=== PATIENT | male | born 1960 | race Two or more races ===

== ENCOUNTER 2022-03-12 06:22 | Emergency (ER) | payer OTHER ==
[~2022-03-12] VITALS: Ht 167.6 cm; Wt 67.3 kg
[~2022-03-12 06:22] MED LIST: CYCL7.5T2; HYDR500T13; OMEP20TA44; TRAM1CAP; [UNRECOGNIZED DRUG - OTHER]
[2022-03-12] MEDS ORDERED: ETOMIDATE (2MG/ML) 20ML VIAL IV ONE (08:15)
[2022-03-12 09:11] VITALS: BP 132/82
== END 2022-03-12 08:57 | disposition home or self-care (01) ==
LOC: ER 06:22
DX: S43.004A Unspecified dislocation of right shoulder joint, initial encounter (principal); W19.XXXA Unspecified fall, initial encounter; Y93.89 Activity, other specified; Y92.89 Other specified places as the place of occurrence of the external cause; Y99.8 Other external cause status
CPT/HCPCS: 23650; 73030; 99152

== ENCOUNTER 2022-03-19 05:43 | Emergency (ER) | payer MEDICAID, OTHER ==
[~2022-03-19] VITALS: Ht 167.6 cm; Wt 67.7 kg
[2022-03-19] MEDS ORDERED: PROPOFOL 10 MG/ML 20 ML IV ONE (06:45)
[2022-03-19] MEDS ORDERED: KETAMINE 50mg/ML 10ml Vial (500mg/10ml) IV ONE (06:45)
[2022-03-19] MEDS ORDERED: HYDROmorphone HCL 2 MG/ML VL/or syr IV ONE (07:45)
[2022-03-19 09:00] VITALS: BP 139/74
== END 2022-03-19 10:27 | disposition home or self-care (01) ==
LOC: ER 05:43
DX: S43.004A Unspecified dislocation of right shoulder joint, initial encounter (principal); F17.210 Nicotine dependence, cigarettes, uncomplicated; X58.XXXA Exposure to other specified factors, initial encounter; Y93.89 Activity, other specified; Y92.89 Other specified places as the place of occurrence of the external cause; Y99.8 Other external cause status
CPT/HCPCS: 23650; 73020; 73030; 99152; 99285; J2704; 94760; 94762

== ENCOUNTER 2022-03-23 08:46 | Emergency (ER) | payer MEDICAID ==
[~2022-03-23] VITALS: Ht 157.5 cm; Wt 70.0 kg
[2022-03-23] MEDS ORDERED: HYDROmorphone HCL 2 MG/ML VL/or syr IV ONE (09:30)
[2022-03-23] MEDS ORDERED: ONDANSETRON HCL 4 MG/2 ML VIAL IV ONE (09:30)
[2022-03-23] MEDS ORDERED: ETOMIDATE (2MG/ML) 20ML VIAL IV ONE (10:00)
[2022-03-23 11:50] VITALS: BP 142/75
== END 2022-03-23 12:04 | disposition home or self-care (01) ==
LOC: ER 08:46
DX: S43.004A Unspecified dislocation of right shoulder joint, initial encounter (principal); X58.XXXA Exposure to other specified factors, initial encounter; Y93.89 Activity, other specified; Y92.89 Other specified places as the place of occurrence of the external cause; Y99.8 Other external cause status
CPT/HCPCS: 23650; 73020; 73030; 96374; 96375; 99152; 99285; J1170; J2405

== ENCOUNTER 2025-04-04 08:47 | Emergency (ER) | payer MEDICAID ==
[~2025-04-04] VITALS: Ht 167.6 cm; Wt 69.6 kg
--- NOTE | 2025-04-04 09:12 | ED.PDOC ---
Musculoskeletal HPI Comments 64 year old male with PMHx shoulder dislocation presents to the ED with a chief complaint of RT shoulder pain onset today. Patient states he was playing Frisbee, threw it with his RT arm and immediately after began experiencing RT shoulder pain. He had RT rotator cuff surgery 1 year ago. He is currently experiencing 10/10 pain, began experiencing numbness to RT arm, has dislocated RT shoulder 3 times in the past, last ED visit was 04/12/2022. Denies fall, headache, dizziness, fever, chills, chest pain, shortness of breath. No other symptoms or modifying factors present at this time. Chief Complaint: Upper Extremity Time Seen by MD: 09:00 Primary Care Provider: MICHELLE Blake Notes: Medications, Allergies Allergies: Coded Allergies: Ibuprofen (Verified Allergy, Unknown, 04/04/25) Morphine (Verified Allergy, Unknown, 04/04/25) Home Meds Reported Medications Omeprazole ([facility] Omeprazole) 20 Mg Tab, DAILY 05/09/12 [Norflexx] No Conflict Check 05/09/12 Cyclobenzaprine Hcl (Fexmid) 7.5 Mg Tab 05/09/12 Tramadol Hcl (TRAMADOL HCL ER) 150 Mg Cap, QPM 05/09/12 Hydrocodone-Acetaminophen (Acetaminophen/Hydrocodone) 1 Tab Tab, 2.5 Q6HP 05/09/12 Information Source: Patient Mode of Arrival: Ambulatory Location: Right Extremity Location: Shoulder Timing: Hours Prehospital treatment: None Severity: Moderate Able to Move Extremity: No Pain: Moderate Mechanism: Spontaneous Circumstances: Sporting Onset of Symptoms: Spontaneous Symptoms: Pain DVT Risk Factors: NONE Last Tetanus: UTD History of: Shoulder Dislocation, Shoulder Operation Associated signs and symptoms: Shoulder pain Past Medical History PAST MEDICAL HISTORY: Denies Surgical History: Denies all surgeries Family History Family History: Reviewed,noncontributory to illness Social History Smoker: Cigarettes Alcohol: Occasionally Drugs: Denies Drug Use Lives In: Home Constitutional: denies: chills, diaphoresis, fatigue, fever, malaise, sweats, weakness, others EENTM: denies: blurred vision, double vision, ear bleeding, ear discharge, ear drainage, ear pain, ear ringing, eye pain, eye redness, hearing loss, mouth pain, mouth swelling, nasal discharge, nose bleeding, nose congestion, nose pain, photophobia, tearing, throat pain, throat swelling, voice changes, others Respiratory: denies: cough, hemoptysis, orthopnea, SOB at rest, shortness of breath, SOB with excertion, stridor, wheezing, others Cardiovascular: denies: chest pain, dizzy spells, diaphoresis, Dyspnea on exertion, edema, irregular heart beat, left arm pain, lightheadedness, palpitations, PND, syncope, others Gastrointestinal: denies: abdomen distended, abdominal pain, blood streaked bowels, constipated, diarrhea, dysphagia, difficulty swallowing, hematemesis, melena, nausea, poor appetite, poor fluid intake, rectal bleeding, rectal pain, vomiting, others Genitourinary: denies: burning, dysuria, flank pain, frequency, hematuria, incontinence, penile discharge, penile sore, pain, testicle pain, testicle swelling, urgency, others Neurological: reports: numbness (RT arm'); denies: dizziness, fainting, headache, left sided numbness, left sided weakness, paresthesia, pre-existing deficit, right sided numbness, right sided weakness, seizure, speech problems, tingling, tremors, weakness, others Musculoskeletal: reports: others (RT shoulder pain, RT arm numbness); denies: back pain, gout, joint pain, joint swelling, muscle pain, muscle stiffness, neck pain Integumetry: denies: bruises, change in color, change in hair/nails, dryness, laceration, lesions, lumps, rash, wounds, others Allergic/Immunocompromised: denies: Difficulty Healing, Frequent Infections, Hives, Itching, others Hematologic/Lymphatic: denies: anemia, blood clots, easy bleeding, easy bruising, swollen glands, others Endocrine: denies: excessive hunger, excessive sweating, excessive thirst, excessive urination, flushing, intolerance to cold, intolerance to heat, unexplained weight gain, unexplained weight loss, others Psychiatric: denies: anxiety, bipolar disorder, depression, hopeless, panic disorder, schizophrenia, sleepless, suicidal, others All Other Systems: Reviewed and Negative Physical Exam General Appearance: Moderate Distress, Normal HEENT: Normal ENT Inspection, Pharynx Normal, TMs Normal Neck: Full Range of Motion, Non-Tender, Normal, Normal Inspection Respiratory: Chest Non-Tender, Lungs Clear, No Accessory Muscle Use, No Respiratory Distress, Normal Breath Sounds Cardiovascular: No Edema, No JVD, No Murmur, No Gallop, Normal Peripheral Pulses, Regular Rate/Rhythm Breast Exam: Deferred Gastrointestinal: No Organomegaly, Non Tender, No Pulsatile Mass, Normal Bowel Sounds, Soft Genitalia: Deferred Pelvic: Deferred Rectal: Deferred Extremities: No calf tenderness, Normal capillary refill, No pedal edema Musculoskeletal : Location: Right Extremity Location: Shoulder (defromity noted) Apperance: Normal Neurologic: Alert, associate biological sales II-XII nml as Tested, No Motor Deficits, Normal Affect, Normal Mood, No Sensory Deficits Cerebellar Function: Normal Reflexes: Normal Skin: Dry, Normal Color, Warm Lymphatic: No Adenopathy Was a procedure done? Was a procedure done?: Yes Sedation Sedation?: Yes Informed consent obtained: Yes Sedation start time: 10:01 Sedation end time: 10:08 Sedation total time: Propofol 10 mL Reduction Indication: Dislocation Sedation: Consents obtained, Sedation as ordered (Propafol 10 mL) Intra-articular anesthetic hussain: Yes Nerve Block: Other Post-reduction x-ray show: Reduction, Good Alignment Informed consent obtained: Yes Risks/benefits/alt described: Yes Differential Diagnosis EXT Differential Diagnosis: Fracture, Sprain, Dislocation, Strain X-Ray, Labs, Meds, VS Vital Signs Date Time Temp Pulse Resp B/P (MAP) Pulse Ox O2 Delivery O2 Flow Rate FiO2 04/04/25 10:32 Room Air* 0 21 04/04/25 10:32 56 17 127/66 (86) 98 04/04/25 10:05 98.0 61 13 126/65 (85) 95 98.0 04/04/25 09:56 98.0 66 12 135/59 (84) 94 98.0 04/04/25 09:11 63 12 147/72 (97) 92 04/04/25 08:49 97.9 73 18 168/88 98 97.9 Current Medications Medications (Trade) Dose Ordered Sig/Melinda Route Start Time Stop Time Status Last Admin Sodium Chloride 1,000 ml @ 1,000 mls/hr Q1H ONCE IV 04/04/25 09:15 04/04/25 10:14 DC 04/04/25 10:03 Ondansetron HCl (Zofran) 4 mg ONCE ONCE IV 04/04/25 09:15 04/04/25 09:16 DC 04/04/25 10:15 Propofol (Diprivan) 100 mg ONCE ONCE IV 04/04/25 10:15 04/04/25 10:16 DC 04/04/25 10:[address] [address] Ph: [phone] DIAGNOSTIC IMAGING Diagnostic Imaging Report : [id number] Signed PATIENT: JAMES LOO ACCT: [id number] UNIT: [id number] : 1960 LOC: ER ROOM / BED: / AGE / SEX: 64 / M ADM STATUS: REG ER SERVICE [id number] ORDERING PHYSICIAN: BRIA JOHNS MD PROCEDURE(s): RSHD2 - R SHOULDER 2+ VIEW XRAY REASON: POSSIBLE DISLOCATION ORDER NUMBER(s): [id number], ACCESSION NUMBER(s): [id number] EXAM: XY R SHOULDER 2+ VIEW XRAY CLINICAL INDICATION: POSSIBLE DISLOCATION TECHNIQUE: XY R SHOULDER 2+ VIEW XRAY COMPARISON: R SHOULDER 1V XRAY on DOS: 03/23/22, R SHOULDER COMPLETE XRAY on DOS: 03/23/22, R SHOULDER 1V XRAY on DOS: 03/19/22, R SHOULDER COMPLETE XRAY on DOS: 03/19/22, R SHOULDER COMPLETE XRAY on DOS: 03/12/22 FINDINGS/IMPRESSION: There is anterior inferior dislocation of the humeral head. No definite fracture is seen There is no radiopaque foreign body. ATED BY: GUILLERMO TRACY MD DICTATED DATE/TIME: 04/04/25922 SIGNED BY: GUILLERMO TRACY MD SIGNED DATE/TIME: 04/04/25922 CC: [address] [address] Ph: [phone] DIAGNOSTIC IMAGING Diagnostic Imaging Report : [id number] Signed PATIENT: JAMES LOO ACCT: [id number] UNIT: [id number] : 1960 LOC: ER ROOM / BED: / AGE / SEX: 64 / M ADM STATUS: REG ER SERVICE 1003 ORDERING PHYSICIAN: BRIA JOHNS MD PROCEDURE(s): RSHD - R SHOULDER 1V XRAY REASON: right shoulder reduction ORDER NUMBER(s): [id number], ACCESSION NUMBER(s): [id number] EXAM: XY R SHOULDER 1V XRAY CLINICAL INDICATION: right shoulder reduction TECHNIQUE: XY R SHOULDER 1V XRAY COMPARISON: XY R SHOULDER 2+ VIEW XRAY on DOS: 04/04/25, R SHOULDER 1V XRAY on DOS: 03/23/22, R SHOULDER COMPLETE XRAY on DOS: 03/23/22, R SHOULDER 1V XRAY on DOS: 03/19/22, R SHOULDER COMPLETE XRAY on DOS: 03/19/22 FINDINGS/IMPRESSION: Status post reduction anatomic alignment. ATED BY: SARITA BLAIR MD DICTATED DATE/TIME: 04/04/25 1034 SIGNED BY: SARITA BLAIR MD SIGNED DATE/TIME: 04/04/25 1034 CC: Time of 1ST Reevaluation: 09:30 Reevaluation 1ST: Unchanged Patient Education/Counseling: Diagnosis, Treatment, Prognosis Family Education/Counseling: No Family Present Departure 1 Departure Time of Disposition: 12:22 (Patient has a dislocation of the right shoulder. It was reduced in the ER. We will discharge patient home with outpatient follow up) Impression: Primary Impression: Dislocation of right shoulder joint Disposition: 01 HOME / SELF CARE / HOMELESS Condition: Stable Additional Instructions: You dislocated your shoulder. It was reduced in the ER. You were placed in a sling for comfort. For pain you can take the followinam: Ibuprofen 400mg with food Noon: Acetaminophen 1000mg 4pm: Ibuprofen 400mg with food 8pm: Acetaminophen 1000mg You were referred to an orthopedic surgeon to ensure you are healing well. Please call for an appointment within one week. If your symptoms worsen or you have any other concerns then please return to the ER. Discharged With: Self Critical Care Note Critical Care Time?: No Stability Stability form required: No Heart Score Heart Score: Heart Score Response (Comments) Value History N/A 0 EKG N/A 0 Age N/A 0 Risk Factors N/A 0 Troponin N/A 0 Total 0 I personally scribed for BRIA JOHNS MD ([facility]) on 04/04/25 at 09:12. Electronically submitted by Pamela Bond ([email or web address]). I personally scribed for BRIA JOHNS MD ([facility]) on 04/04/25 at 09:48. Electronically submitted by Pamela Bond ([email or web address]). I personally scribed for BRIA JOHNS MD ([facility]) on 04/04/25 at 09:54. Electronically submitted by Pamela Bond ([email or web address]). I personally scribed for BRIA JOHNS MD ([facility]) on 04/04/25 at 10:05. Electronically submitted by Pamela Bond ([email or web address]). I personally scribed for BRIA JOHNS MD ([facility]) on 04/04/25 at 11:23. Electronically submitted by Pamela Bond ([email or web address]). BRIA JOHNS MD Apr 04, 2025 09:12
--- NOTE | 2025-04-04 09:26 | DVH ---
EXAM: XY R SHOULDER 2+ VIEW XRAY CLINICAL INDICATION: POSSIBLE DISLOCATION TECHNIQUE: XY R SHOULDER 2+ VIEW XRAY COMPARISON: R SHOULDER 1V XRAY on DOS: 03/23/22, R SHOULDER COMPLETE XRAY on DOS: 03/23/22, R SHOULDER 1V XRAY on DOS: 03/19/22, R SHOULDER COMPLETE XRAY on DOS: 03/19/22, R SHOULDER COMPLETE XRAY on DOS: 03/12/22 FINDINGS/IMPRESSION: There is anterior inferior dislocation of the humeral head. No definite fracture is seen There is no radiopaque foreign body.
[2025-04-04] MEDS: PROPOFOL 10 MG/ML 20 ML IV ONE ×2 (10:00)
[2025-04-04] MEDS: SODIUM CHLORIDE 0.9% 1,000 ML IV ONE (10:03)
[2025-04-04 10:05] VITALS: TEMP 98
[2025-04-04] MEDS: ONDANSETRON HCL 4 MG/2 ML VIAL IV ONE (10:15)
[2025-04-04 10:32] VITALS: BP 127/66; RESP 17; O2SAT 98
--- NOTE | 2025-04-04 10:36 | DVH ---
EXAM: XY R SHOULDER 1V XRAY CLINICAL INDICATION: right shoulder reduction TECHNIQUE: XY R SHOULDER 1V XRAY COMPARISON: XY R SHOULDER 2+ VIEW XRAY on DOS: 04/04/25, R SHOULDER 1V XRAY on DOS: 03/23/22, R SHOULDER COMPLETE XRAY on DOS: 03/23/22, R SHOULDER 1V XRAY on DOS: 03/19/22, R SHOULDER COMPLETE XRAY on DOS: 03/19/22 FINDINGS/IMPRESSION: Status post reduction anatomic alignment.
[2025-04-04 12:00] VITALS: PULSE 62
== END 2025-04-04 12:38 | disposition home or self-care (01) ==
LOC: ER 08:47
DX: S43.004A Unspecified dislocation of right shoulder joint, initial encounter (principal); F17.210 Nicotine dependence, cigarettes, uncomplicated; Z88.6 Allergy status to analgesic agent; Z88.5 Allergy status to narcotic agent; Z79.899 Other long term (current) drug therapy; X58.XXXA Exposure to other specified factors, initial encounter; Y93.74 Activity, frisbee; Y92.89 Other specified places as the place of occurrence of the external cause; Y99.8 Other external cause status
CPT/HCPCS: 23650; 73020; 73030; 96361; 96374; 99285; J2405; J2704; J7030